=== PATIENT | male | born 1970 | race Caucasian/White ===

== ENCOUNTER 2018-02-01 20:55 | Emergency (ER) | payer OTHER ==
[~2018-02-01] VITALS: Ht 190.5 cm; Wt 113.6 kg
[2018-02-01 21:01] VITALS: BP 151/91
[2018-02-01] MEDS ORDERED: bacitracin 15gm ointment TP ONE (21:25)
[2018-02-01] MEDS ORDERED: LIDOcaine 1.5% w/epinephrine 1:200,000 5ml ampul IJ ONE (21:25)
[2018-02-01] MEDS ORDERED: IBUP-1986 PO (22:05)
== END 2018-02-01 22:32 | disposition home or self-care (01) ==
LOC: ER 20:56
DX: S91.311A Laceration without foreign body, right foot, initial encounter (principal); Z79.899 Other long term (current) drug therapy; W26.0XXA Contact with knife, initial encounter; Y93.89 Activity, other specified; Y92.89 Other specified places as the place of occurrence of the external cause; Y99.8 Other external cause status
CPT/HCPCS: 12004; 99283; A6255; A6446; A6449; J3490